=== PATIENT | female | born 1975 | race Two or more races ===

== ENCOUNTER 2024-03-09 00:45 | Day surgery (SDC) | payer BC ==
[2024-03-09] MEDS ORDERED: Sod Ferric Gluc Complx/Sucrose 125 MG in NS 100 ML IV SCH (06:00)
[2024-03-09 09:07] VITALS: BP 131/80
[2024-03-09] MEDS ORDERED: FAMO20 PO (09:47)
[2024-03-09] MEDS ORDERED: LISINOPRIL-HCT1 EAC1 PO (09:48)
[2024-03-09] MEDS ORDERED: Atarax10 MG PO (09:48)
[2024-03-09] MEDS ORDERED: TIZA4 PO (09:49)
== END 2024-03-09 10:22 | disposition home or self-care (01) ==
LOC: ATC 00:45
DX: E61.1 Iron deficiency (principal); E78.5 Hyperlipidemia, unspecified; I10 Essential (primary) hypertension; Z88.2 Allergy status to sulfonamides; Z88.8 Allergy status to other drugs, medicaments and biological substances
CPT/HCPCS: 96365; J2916

== ENCOUNTER 2024-03-15 02:29 | Day surgery (SDC) | payer BC ==
[~2024-03-15 02:29] MED LIST: Atarax10 MG PO; FAMO20 PO; LISINOPRIL-HCT1 EAC1 PO; TIZA4 PO
[2024-03-15] MEDS ORDERED: Sod Ferric Gluc Complx/Sucrose 125 MG in NS 100 ML IV SCH (06:00)
[2024-03-15 14:55] VITALS: BP 151/96
== END 2024-03-15 16:02 | disposition home or self-care (01) ==
LOC: ATC 02:29
DX: E61.1 Iron deficiency (principal); E78.5 Hyperlipidemia, unspecified; I10 Essential (primary) hypertension; Z88.2 Allergy status to sulfonamides; Z88.8 Allergy status to other drugs, medicaments and biological substances
CPT/HCPCS: 96365; J2916

== ENCOUNTER 2024-03-23 08:24 | Day surgery (SDC) | payer BC ==
[~2024-03-23 08:24] MED LIST changes: +Sod Ferric Gluc Complx/Sucrose 125 MG in NS 100 ML IV SCH
[2024-03-23 09:13] VITALS: BP 151/88
== END 2024-03-23 10:12 | disposition home or self-care (01) ==
LOC: ATC 08:24
DX: E61.1 Iron deficiency (principal); E78.5 Hyperlipidemia, unspecified; I10 Essential (primary) hypertension; Z88.8 Allergy status to other drugs, medicaments and biological substances; Z88.2 Allergy status to sulfonamides
CPT/HCPCS: 96365; J2916

== ENCOUNTER 2024-03-30 02:51 | Day surgery (SDC) | payer BC ==
[2024-03-30 10:18] VITALS: BP 125/78
== END 2024-03-30 11:15 | disposition home or self-care (01) ==
LOC: ATC 02:51
DX: E61.1 Iron deficiency (principal); E78.5 Hyperlipidemia, unspecified; I10 Essential (primary) hypertension; D56.9 Thalassemia, unspecified; Z88.2 Allergy status to sulfonamides; Z88.8 Allergy status to other drugs, medicaments and biological substances
CPT/HCPCS: 96365; J2916

== ENCOUNTER 2024-04-05 09:20 | Day surgery (SDC) | payer BC ==
[2024-04-05 10:19] VITALS: BP 135/85
== END 2024-04-05 11:18 | disposition home or self-care (01) ==
LOC: ATC 09:20
DX: E61.1 Iron deficiency (principal); I10 Essential (primary) hypertension; Z79.899 Other long term (current) drug therapy; Z88.8 Allergy status to other drugs, medicaments and biological substances; Z88.2 Allergy status to sulfonamides
CPT/HCPCS: 96365; J2916

== ENCOUNTER 2024-04-11 09:30 | Day surgery (SDC) | payer BC ==
[2024-04-11 09:59] VITALS: BP 125/74
== END 2024-04-11 11:00 | disposition home or self-care (01) ==
LOC: ATC 09:30
DX: E61.1 Iron deficiency (principal); E78.5 Hyperlipidemia, unspecified; I10 Essential (primary) hypertension; Z88.2 Allergy status to sulfonamides; Z88.8 Allergy status to other drugs, medicaments and biological substances; Z79.899 Other long term (current) drug therapy
CPT/HCPCS: 96365; J2916